=== PATIENT | male | born 2000 | race African-American/Black ===

== ENCOUNTER 2021-04-19 14:23 | Emergency (ER) | payer BC ==
[~2021-04-19] VITALS: Ht 175.3 cm; Wt 122.7 kg
--- NOTE | 2021-04-19 14:56 | PHYS DOC ---
General Adult EDM: Chief Complaint: OTHER COMPLAINTS HPI: HPI: Patient is a 21 year old male with no significant medical history who presents to the ED today with the mother. Mother states patient has had what she believes were 2 seizures one a month ago and one today prior to coming to the ED. Mother states today patient was laying in bed and had his right hand in a fist for a few minutes and she believes patient was having a seizure. Mother states the rest of his body did not have any movements. Mother denies patient voiding on himself. Mother states a month ago patient was also laying in bed and sounded like he was choking for a couple seconds and this made her feel he is having a seizure. Patient reports a slight frontal headache that he describes as a normal headache for him. Review of Systems: Review of Systems: Constitutional: Denies fever or chills. [] Eyes: Denies change in visual acuity. [] HENT: Denies nasal congestion or sore throat. [] Respiratory: Denies cough or shortness of breath. [] Cardiovascular: Denies chest pain or edema. [] GI: Denies abdominal pain, nausea, vomiting, bloody stools or diarrhea. [] : Denies dysuria. [] Musculoskeletal: Denies back pain or joint pain. [] Integument: Denies rash. [] Neurologic: reports seizure and slight headache, denies focal weakness or sensory changes. [] Psychiatric: Denies depression or anxiety. [] Heart Score: C/O Chest Pain: N/A Risk Factors: Risk Factors: DM, Current or recent (<one month) smoker, HTN, HLP, family history of CAD, obesity. Risk Scores: Score 0 - 3: 2.5% MACE over next 6 weeks - Discharge Home Score 4 - 6: 20.3% MACE over next 6 weeks - Admit for Clinical Observation Score 7 - 10: 72.7% MACE over next 6 weeks - Early Invasive Strategies Allergies: Allergies: Allergies Coded Allergies Type Severity Reaction Last Updated Verified No Known Drug Allergies 04/19/21 No Physical Exam: PE: Constitutional: Well developed, well nourished, no acute distress, non-toxic appearance. [] HENT: Normocephalic, atraumatic, bilateral external ears normal, oropharynx moist, no oral exudates, nose normal. [] Eyes: PERRLA, EOMI, conjunctiva normal, no discharge. [] Neck: Normal range of motion, no tenderness, supple, no stridor. [] Cardiovascular:Heart rate regular rhythm, no murmur [] Lungs & Thorax: Bilateral breath sounds clear to auscultation [] Abdomen: Bowel sounds normal, soft, no tenderness, no masses, no pulsatile masses. [] Skin: Warm, dry, no erythema, no rash. [] Back: No tenderness, no CVA tenderness. [] Extremities: No tenderness, no cyanosis, no clubbing, ROM intact, no edema. [] Neurologic: Alert and oriented X 3, normal motor function, normal sensory function, no focal deficits noted. Cranial nerves II through XII intact Psychologic: Affect normal, judgement normal, mood normal. [] EKG: EKG: [] Radiology/Procedures: Radiology/Procedures: []PROCEDURE: CHEST PA & LATERAL XR CHEST 2V History: Reason: seizure / Spl. Instructions: / History: Comparison: None. Findings: No consolidation or pleural effusion. Normal heart size. No pneumothorax. Impression: 1. No acute cardiopulmonary process. Electronically signed by: Huang Lawrence DO (04/19/2021 3:51 PM) [facility] DICTATED and SIGNED BY: HUANG LAWRENCE DO DATE: 04/19/21 [id number] 0 PROCEDURE: CT HEAD WO CONTRAST INDICATION: Reason: seizure / Spl. Instructions: / History: COMPARISON: None. TECHNIQUE: Axial CT images obtained through the head without intravenous contrast. One or more of the following individualized dose reduction techniques were utilized for this examination: 1. Automated exposure control; 2. Adjustment of the mA and/or kV according to patient size; 3. Use of iterative reconstruction technique. FINDINGS: No intracranial hemorrhage. No midline shift. Basal cisterns patent. Ventricles and sulci are unremarkable. No acute osseous abnormality. Orbits and paranasal sinuses unremarkable. IMPRESSION: * No acute intracranial hemorrhage. Electronically signed by: Magalis Ledezma MD (04/19/2021 3:18 PM) [id number] DICTATED and SIGNED BY: MAGALIS LEDEZMA MD DATE: 04/19/21 [id number] 0 Course & Med Decision Making: Course & Med Decision Making Pertinent Labs and Imaging studies reviewed. (See chart for details) This is a 21-year-old male patient presenting to the ED today with the mother, mother believes patient had 2 seizures one a month ago and one today. See HPI. Patient does not appear postictal. He is alert oriented x3. Has no previous history of seizures apart from the 2 that mother is talking about. CT of the head is negative, lactic is negative, CMP with no acute findings, CBC with a WBC of 13.3. Patient was discharged to home, follow-up with PCP, I do not believe he had a seizure. Skyler Disclaimer: Dragangelika Disclaimer: This electronic medical record was generated, in whole or in part, using a voice recognition dictation system. Departure Departure Impression: Primary Impression: General medical exam Disposition: HOME / SELF CARE / HOMELESS Condition: STABLE Referrals: NO PCP (PCP) follow up with his doctor in 1 week Patient Instructions: Medical Screening Exam Additional Instructions: You were evaluated in the emergency room, from the work-up we have done we do not see any sign you had a seizure. Please follow-up with your primary care doctor. JANEY CARSON CLAIM SPECIALIST Apr 19, 2021 14:56
[2021-04-19 15:07] LABS: BASO # 0.1 x10^3/uL (0.0-0.2); BASO % 0 % (0-3); EOS # 0.1 x10^3/uL (0.0-0.7); EOS % 0 % (0-3); HEMATOCRIT 41.4 % (39.0-53.0); HEMOGLOBIN 13.7 g/dL (13.0-17.5); LYMPH # 1.2 x10^3/uL (1.0-4.8); LYMPH % 9 % (24-48); MEAN CORPUSCULAR HEMOGLOBIN 27 pg (25-35); MEAN CORPUSCULAR HGB CONC 33 g/dL (31-37); MEAN CORPUSCULAR VOLUME 82 fL (79-100); MONO % 7 % (0-9); NEUT # 11.1 x10^3/uL (1.8-7.7); NEUT % 83 % (31-73); PLATELET COUNT 297 x10^3/uL (140-400); RED BLOOD COUNT 5.04 x10^6/uL (4.30-5.70); WHITE BLOOD COUNT 13.3 x10^3/uL (4.0-11.0)
[2021-04-19 15:14] LABS: CALCIUM 8.9 mg/dL (8.5-10.1); CREATININE 1.2 mg/dL (0.7-1.3); GFR 92.5; POTASSIUM 4.1 mmol/L (3.5-5.1)
--- NOTE | 2021-04-19 15:20 | RAD ---
INDICATION: Reason: seizure / Spl. Instructions: / History: COMPARISON: None. TECHNIQUE: Axial CT images obtained through the head without intravenous contrast. One or more of the following individualized dose reduction techniques were utilized for this examinat ion: 1. Automated exposure control; 2. Adjustment of the mA and/or kV according to patient size; 3 . Use of iterative reconstruction technique. FINDINGS: No intracranial hemorrhage. No midline shift. Basal cisterns patent. Ventricles and sulci are unremarkable. No acute osseous abnormality. Orbits and paranasal sinuses unremarkable. IMPRESSION: * No acute intracranial hemorrhage. Electronically signed by: Leroy Thorne MD (04/19/2021 3:18 PM) [id number]
[2021-04-19 15:29] LABS: TOTAL BILIRUBIN 0.3 mg/dL (0.2-1.0); TOTAL PROTEIN 7.9 g/dL (6.4-8.2)
--- NOTE | 2021-04-19 15:54 | RAD ---
XR CHEST 2V History: Reason: seizure / Spl. Instructions: / History: Comparison: None. Findings: No consolidation or pleural effusion. Normal heart size. No pneumothorax. Impression: 1. No acute cardiopulmonary process. Electronically signed by: Huang Lawrence DO (04/19/2021 3:51 PM) [facility] [place]
[2021-04-19 16:22] VITALS: BP 142/83
[2021-04-19 16:35] LABS: BILIRUBIN,URINE NEGATIVE (NEG); CLARITY,URINE CLEAR; COLOR,URINE YELLOW; NITRITE,URINE NEGATIVE (NEG); PH,URINE 5.5 (<5.0-8.0); PROTEIN,URINE NEGATIVE (NEG-TRACE); UROBILINOGEN,URINE 0.2 mg/dL (0.2 mg/dL)
[2021-04-19 16:41] LABS: BARBITURATES NEG (NEG); BENZODIAZEPINES NEG (NEG); CANNABINOIDS NEG (NEG); COCAINE NEG (NEG); METHADONE NEG (NEG); OPIATES NEG (NEG); PHENCYCLIDINE NEG (NEG)
[2021-04-19 16:42] LABS: AMPHETAMINE/METHAMPHETAMINE NEG (NEG)
[2021-04-19 16:43] LABS: HYALINE CASTS, URINE FEW /HPF
[2021-04-19 16:47] LABS: BACTERIA,URINE FEW /HPF (0-FEW); RBC,URINE RARE /HPF (0-2)
[2021-04-19 16:48] LABS: AMORPHOUS SEDIMENT,UR PRESENT /HPF
== END 2021-04-19 16:40 | disposition home or self-care (01) ==
LOC: ER 14:23
DX: Z00.8 Encounter for other general examination (principal); R56.9 Unspecified convulsions; R51.9 Headache, unspecified
CPT/HCPCS: 36415; 70450; 71046; 80053; 80307; 81001; 83605; 85025; 99285-25